=== PATIENT | female | born 1950 | race Caucasian/White ===

== ENCOUNTER 2019-05-16 12:33 | Outpatient (CLI) | payer MEDICARE ==
--- NOTE | 2019-05-18 14:28 | NM ---
NUCLEAR MEDICINE I131 WHOLE BODY SCAN: HISTORY: Thyroid cancer. COMPARISON: 05/27/2017 performed at [facility]. TECHNIQUE: Patient was administered 4.90 mCi of I-131 orally. Whole body imaging was performed. FINDINGS: Expected distribution of the radiotracer. There is uptake in the upper chest which may represent medi astinal lymph node involvement. IMPRESSION: Increased uptake in the upper chest which may represent mediastinal lymph node involvement. Further e valuation with a postcontrast chest CT is recommended. Transcribed Date/Time: 05/18/2019 3:08 PM
== END 2019-05-16 12:34 | disposition home or self-care (01) ==
LOC: NM 12:33
PROVIDERS: ATTEND Internal Medicine Endocrinology, Diabetes & Metabolism
DX: C73 Malignant neoplasm of thyroid gland (principal)
CPT/HCPCS: 78018; A9517